=== PATIENT | female | born 1960 ===

== ENCOUNTER 2017-04-19 09:31 | Day surgery (SDC) | payer OTHER ==
[2017-04-19 10:13] VITALS: BMI 24.0
[2017-04-19 13:22] VITALS: TEMP 98.2
[2017-04-19 13:44] VITALS: O2SAT 100
[2017-04-19 14:00] VITALS: RESP 16
[2017-04-19 14:28] VITALS: BP 115/68; PULSE 71
== END 2017-04-19 14:24 | disposition home or self-care (01) ==
LOC: C.ENDO 09:31
PROVIDERS: ATTEND Internal Medicine Gastroenterology
DX: R19.7 Diarrhea, unspecified (principal); R63.4 Abnormal weight loss; K31.7 Polyp of stomach and duodenum; Z86.010 Personal history of colon polyps; K31.9 Disease of stomach and duodenum, unspecified; K64.8 Other hemorrhoids; K52.9 Noninfective gastroenteritis and colitis, unspecified

== ENCOUNTER 2019-03-21 06:47 | Day surgery (SDC) | payer OTHER ==
[2019-03-20 10:58] VITALS: BMI 23.5
[2019-03-21 07:05] VITALS: RESP 18
[2019-03-21] MEDS ORDERED: Propofol 10 mg/ml Inj (20 ML) ONE (08:50)
--- NOTE | 2019-03-21 09:13 | CP.SDSHP ---
Same Day Surgery H & P - History Proposed Procedure: EGD. Colonoscopy Pre-Op Diagnosis: heartburn. h/o colon polyps - Previous Medical/Surgical History Cardiac: Hypertension Previous Surgical History: h/o colon polyps. BILLY/BSO. Hernia. Appendix - Allergies Allergies: Allergies Penicillins Allergy (Verified 04/19/17 10:13) RASH - Physical Exam Vital Signs: Vital Signs 03/21/19 07:00 Temperature 97.7 F Pulse Rate 81 Respiratory 18 Rate Blood Pressure 142/87 O2 Sat by Pulse 100 Oximetry Mental Status: Alert & Oriented x3 Neuro: WNL Heart: WNL Lungs: WNL GI: WNL - Impression Impression: heartburn. h/o colon polyps Pt. Evaluated Today:Candidate for Anesthesia & Procedure: Yes - Date & Time Date: 03/21/19 Time: 09:13 Short Stay Discharge - Short Stay Discharge Admitting Diagnosis/Reason for Visit: LOWER ABDOMINAL PAIN, HEARTBURN, CHANGE IN BOWEL H Disposition: HOME/ ROUTINE
[2019-03-21] MEDS ORDERED: Phenylephrine 10 mg/ml Inj ONE (09:38)
[2019-03-21] MEDS ORDERED: ePHEDrine 50 mg/ml Inj ONE (09:40)
[2019-03-21 10:11] VITALS: O2SAT 96
[2019-03-21 11:12] VITALS: BP 115/67; PULSE 73; TEMP 97.3
== END 2019-03-21 11:12 | disposition home or self-care (01) ==
LOC: C.ENDO 06:47
PROVIDERS: ATTEND Internal Medicine Gastroenterology
DX: K64.1 Second degree hemorrhoids (principal); K21.0 Gastro-esophageal reflux disease with esophagitis; K31.9 Disease of stomach and duodenum, unspecified; K29.50 Unspecified chronic gastritis without bleeding; K31.7 Polyp of stomach and duodenum; R10.30 Lower abdominal pain, unspecified; R12 Heartburn; R19.4 Change in bowel habit; Z86.010 Personal history of colon polyps; I10 Essential (primary) hypertension; Z88.0 Allergy status to penicillin; Z90.49 Acquired absence of other specified parts of digestive tract; Z90.710 Acquired absence of both cervix and uterus
CPT/HCPCS: 43239; 45378; 88305; 88312; 88313; 88342; J2001; J2370; J2704